=== PATIENT | male | born 2000 | race Caucasian/White ===

== ENCOUNTER 2024-07-26 21:19 | Emergency (ER) | payer SELFPAY ==
[~2024-07-26 21:19] MED LIST: CYPROHEPTADINE H4 M1 PO; FLONASE NASAL S16 GM NS; INTUNIV1 MG PO; SINGULAIR10 MG PO; STRATTERA40 MG PO; VENTOLIN0.09 MG IH; ZYRTEC10 MG PO
[2024-07-26 21:25] VITALS: BP 124/67
[2024-07-26] MEDS ORDERED: FLUTICASONE P15.8 ML NS (21:42)
[2024-07-26] MEDS ORDERED: PROAIR HFA0.09 MG/AC IH (21:42)
[2024-07-26] MEDS ORDERED: ALLER-TEC10 MG PO (21:42)
[2024-07-26] MEDS ORDERED: ZOFRAN ODT4 MG PO (21:43)
== END 2024-07-26 22:32 | disposition home or self-care (01) ==
LOC: ED 21:19
DX: J06.9 Acute upper respiratory infection, unspecified (principal); R11.2 Nausea with vomiting, unspecified; F17.200 Nicotine dependence, unspecified, uncomplicated

== ENCOUNTER 2024-10-19 09:51 | Emergency (ER) | payer SELFPAY ==
[~2024-10-19] VITALS: Ht 177.8 cm; Wt 91.6 kg
[~2024-10-19 09:51] MED LIST changes: +ALLER-TEC10 MG PO; +FLUTICASONE P15.8 ML NS; +PROAIR HFA0.09 MG/AC IH; +ZOFRAN ODT4 MG PO
[2024-10-19 09:55] VITALS: BP 132/79
[2024-10-19 10:20] LABS: HEMATOCRIT 42.4 % (42.0-52.0); HEMOGLOBIN 14.9 g/dL (13.5-18.0); MEAN CELL VOLUME 85 fl (78-100); MEAN CORPUSCULAR HEMOGLOBIN 30 pg (27-31); MEAN CORPUSCULAR HGB CONC 35 g/dL (33-37); MEAN PLATELET VOLUME 8.6 fl (7.4-10.4); PLATELET COUNT 169 K/mm3 (130-400); RED BLOOD COUNT 5.01 M/mm3 (4.20-5.60); RED CELL DISTRIBUTION WIDTH 12.3 % (11.5-14.5); WHITE BLOOD COUNT 5.2 K/mm3 (4.8-10.8)
[2024-10-19] MEDS ORDERED: Albuterol 0.083% Nebule (2.5 MG/3 ML) IH ONE (10:30)
[2024-10-19] MEDS ORDERED: PROAIR HFA0.09 MG/AC IH (10:35)
[2024-10-19 10:42] LABS: BAND 28 % (0-10); LYMPHOCYTE 8 % (20-51); MONOCYTE 5 % (3-10); NEUTROPHILS 58 % (42-75)
[2024-10-19] MEDS ORDERED: Acetaminophen 325 MG TAB PO ONE (10:45)
== END 2024-10-19 10:51 | disposition home or self-care (01) ==
LOC: ED 09:51
PROVIDERS: Family Medicine
DX: J10.1 Influenza due to other identified influenza virus with other respiratory manifestations (principal); F17.200 Nicotine dependence, unspecified, uncomplicated; Z87.09 Personal history of other diseases of the respiratory system